=== PATIENT | female | born 1950 | race Caucasian/White ===

== ENCOUNTER 2017-01-16 00:49 | Emergency (ER) | payer MEDICARE, OTHER ==
[2017-01-16 01:32] LABS: INR 0.96 INR (0.90-1.10); Partial Thrombolplastin Time 23.1 Seconds (24-32)
[2017-01-16 01:33] LABS: ALT 14 U/L (19-67); AST 13 U/L (0-48); Albumin * 3.2 gm/dl (3.4-5.0); Alkaline Phosphatase * 102 U/L (50-170); Anion Gap 8.3 mmol/L (6.8-13.8); BUN/Creatinine Ratio 22.2 (9.0-21.6); Bilirubin, Total 0.3 mg/dL (0.0-1.1); Blood Urea Nitrogen 22 mg/dL (3-23); Ca. Corrected For Albumin 9.2 mg/dL (8.4-10.2); Calcium * 8.9 mg/dL (7.9-10.9); Carbon Dioxide 35.5 mmol/L (24-32.6); Chloride 105 mmol/L (97-106); Glucose * 214 mg/dL (70-110); Potassium 3.8 mmol/L (3.4-4.6); Sodium 145 mmol/L (132-142); Total Protein 7.1 gm/dL (6.2-8.2); Troponin I Less than 0.017 ng/ml (0.00-0.10)
[2017-01-16 01:41] LABS: White Blood Count 6.9 K/mm3 (4.0-10.5)
[2017-01-16 01:42] LABS: Hematocrit 40.8 % (37.0-47.0); Hemoglobin 12.3 gm/dL (12.5-16.0); Mean Cell Volume 95.3 fl (78-100); Mean Corpuscular Hemoglobin 28.7 pg (27-31); Mean Corpuscular Hgb Conc 30.1 g/dl (32-36); Mean Platelet Volume 9.5 fl (6.0-9.5); Platelet Count 247 K/mm3 (150-450); Red Blood Count 4.28 M/mm3 (4.2-5.4); Red Cell Distribution Width 14.3 % (11.5-14.0)
[2017-01-16 01:43] LABS: Total Cells Counted 100
--- NOTE | 2017-01-16 01:50 | ERNOTE ---
Chest Pain/Cardiac HPI Chief Complaint: Chest Pain Time Seen by Provider: 01/16/17 01:34 Source: patient Exam Limitations: no limitations Immunizations: IMMUNIZATION HX Immunizations Up to Date Yes History of Influenza Vaccine Yes Allergies/Adverse Reactions: Allergies adhesive Allergy (Verified 01/16/17 01:09) mold Allergy (Verified 01/16/17 01:09) Penicillins Allergy (Verified 01/16/17 01:09) Home Medications: HOME MEDICATIONS Albuterol Sulfate [Proair Hfa] 1 - 2 puff IH Q4H PRN 01/16/17 [Last Taken Unknown] Atorvastatin Calcium 10 mg PO DAILY 01/16/17 [Last Taken Unknown] Furosemide [Lasix] 20 mg PO DAILY 01/16/17 [Last Taken Unknown] Tiotropium [place] [Spiriva] 18 mcg IH DAILY 01/16/17 [Last Taken Unknown] glipiZIDE [Glipizide] 5 mg PO BID 01/16/17 [Last Taken Unknown] Narrative: pt had some fluttering feeling in her chest yesterday, that resolved spontaneously. She had some return of symptoms this morning temporarily. This evening she had increase of chest pain and shortness of breath and presented to the ED Timing: getting worse Severity/Quality: moderate - 10 Location: substernal, epigastric Chest Pain Radiation: no radiation Nitro Today/Relief: no nitro taken today Aspirin Treatment Today: no aspirin today Associated Symptoms: Present: shortness of breath Prior Chest Pain/Cardiac Workup: Reports: prior chest pain, echocardiogram - Stress echo about a year ago Review of Systems - Review of Systems Constitutional: Absent: recent illness EYE: Present: no symptoms reported ENT: Present: no symptoms reported Respiratory: Present: See HPI, shortness of breath, other - increased pain with deep breaths Cardiology: Present: See HPI, chest pain Gastrointestinal/Abdominal: Present: no symptoms reported Genitourinary: Present: no symptoms reported Musculoskeletal: Present: no symptoms reported Skin: Present: no symptoms reported Neurological: Present: no symptoms reported Endocrine: Present: no symptoms reported Hematologic/Lymphatic: Present: no symptoms reported Psych: Present: no symptoms reported - Patient's Past Medical History Patient History - Medical: Diabetes Type 2 Patient History - Cardiac/Respiratory: COPD Patient History - Cancer: Breast Patient History - Surgical Procedures: Cancer Surgery, Tubal Ligation, Other Patient History - Other: None - Social History Living Situations: home Psych History: No pertinent hx Smoking Status: Current every day smoker Do you dip or chew tobacco: No Alcohol Use: rarely Drug Use: none - Immunizations Immunizations Up to Date: Yes History of Influenza Vaccine: Yes Physical Exam - Physical Exam General Appearance: Present: wd/wn, alert, no apparent distress Eye Exam: Normal inspection: bilateral Neck: Present: normal inspection, nontender, supple Respiratory: Present: no respiratory distress, normal breath sounds, lungs clear Cardiovascular/Chest: Present: regular rate, rhythm, no murmur, chest tenderness - mid to lower sternal Gastrointestinal/Abdominal: Present: normal bowel sounds, nontender, nondistended Extremity Exam: Present: extremity edema - 2+ with compression stockings in place bilateral. Oozing noted on both compression stockings and 1-2 + edema Neurological Exam: Present: alert, oriented, normal mood/affect Skin Exam: Present: normal color, warm/dry ED Progress - Results and Orders Patient's Lab Results:: I have reviewed the patient's lab results. Results and Orders: Laboratory Tests 01/16/17 01/16/17 01/16/17 01:10 01:10 01:10 WBC 6.9 Hgb 12.3 L Hct 40.8 Plt Count 247 PT 10.0 INR (Anticoag Therapy) 0.96 PTT ([place]) 23.1 L Sodium 145 H Potassium 3.8 Chloride 105 Carbon Dioxide 35.5 H Anion Gap 8.3 BUN 22 Creatinine 0.99 Est GFR (Non-Af Amer) 59 L BUN/Creatinine Ratio 22.2 H Random Glucose 214 H Calcium 8.9 Total Bilirubin 0.3 AST 13 ALT 14 L Alkaline Phosphatase 102 Troponin I Less than 0.017 Total Protein 7.1 Albumin 3.2 L Laboratory Tests 01/16/17 03:15 Troponin I Less than 0.017 - Vital Signs Patient's Vital Signs:: I have reviewed the patient's vital signs. Vital Signs: Vital Signs 01/16/17 01/16/17 01:00 01:29 Temperature 36.9 C Pulse Rate 78 78 Respiratory 18 16 Rate Blood Pressure 124/47 139/54 O2 Sat by Pulse 95 97 Oximetry - EKG EKG: NSR EKG read: Interp. by wv - X-Ray X-Ray #1 X-Ray: chest Interpretation: Interp. by me X-ray Comments: Linear scarring bilateral bases, no infiltrate, effusion or pneumothorax. Surgical clips noted in the left chest / axilla possibly related to left mastectomy. - Progress/Reassessment Chief Complaint: Chest Pain Progress:: Improved Progress Note-Subjective: 01/16/17 02:46 Pt much improved. Will get second Ti at 03:10. Departure - Departure Clinical Impression: Costochondral chest pain Disposition: Home Follow Up Needed Condition: Good Instructions: Costochondritis, [id number] Additional Instructions: See your regular doctor for further evaluation. Ice to your chest off and on may help with tenderness. You may try tums or other heartburn medications as needed.
[2017-01-16 01:58] LABS: Band 1 % (0-2.0); Eosinophil 11 % (0-3); Lymphocyte 32 % (20-51); Monocyte 8 % (0-9); Neutrophil 48 % (42-75); Neutrophil # 3.3 K/mm3 (1.3-6.0)
[2017-01-16 01:59] LABS: Hypochromia 1+; Platelet Estimate Normal (NORMAL)
[2017-01-16 02:01] LABS: Microcytosis 1+
--- OUTSIDE RECORDS SUMMARY | 2017-01-16 03:35 | XMS REPORT | Continuity of Care Document ---
:1950 Demographics Phone Unavailable Preferred Language Unknown Marital Status Unknown Caodaism Affiliation Unknown Race Unknown Ethnic Group Unknown Author Organization [facility] ([facility]) [place] [address] Phone [phone] Care Team Providers Name Role Phone Unavailable Primary Care Provider Unavailable Source Comments This disclosure is being made pursuant to the Care Everywhere program, applicable federal and state laws, and may not contain all informaitonavailable regarding this patient.[facility] ([facility]) Active Allergies and Adverse Reactions Not on File Current Medications Not on file Active Problems Not on file Social History Tobacco Use Types Packs/Day Years Used Date Never Assessed Plan of Care Health Maintenance Due Date Last Done Comments HCV Screening 1950 Hepatitis B Vaccine (1 of 3 - Primary Series) 1950 Tdap Vaccine 1959 Lipid Disorder Screening 1966 Td Vaccine 1966 Mammogram 1988 Colonoscopy 1998 Zoster Vaccine 2008 Osteoporosis Screening (DXA Bone Density) 2013 Pneumococcal Vaccine (1 of 2 - PCV13) 2013 Influenza Vaccine: Seasonal (#1) 03/27/2016 Results from Last 3 Months Not on file
[2017-01-16 04:17] VITALS: BP 110/40
== END 2017-01-16 04:15 | disposition home or self-care (01) ==
LOC: ER 00:49
DX: R07.1 Chest pain on breathing (principal); E11.9 Type 2 diabetes mellitus without complications; Z85.3 Personal history of malignant neoplasm of breast; F17.200 Nicotine dependence, unspecified, uncomplicated; J44.9 Chronic obstructive pulmonary disease, unspecified

== ENCOUNTER 2017-02-27 20:24 | Emergency (ER) | payer MEDICARE, OTHER ==
--- NOTE | 2017-02-27 21:01 | ERNOTE ---
Dyspnea - General Presenting Symptoms: shortness of breath Time Seen by Provider: 02/27/17 20:48 Source: patient, family Exam Limitations: no limitations - Immun/Allergies/Home Medications Immunizations: IMMUNIZATION HX Immunizations Up to Date Yes History of Influenza Vaccine Yes Hx Pneumococcal Vaccination Yes Allergies/Adverse Reactions: Allergies adhesive Allergy (Verified 02/27/17 20:32) mold Allergy (Verified 02/27/17 20:32) Penicillins Allergy (Verified 02/27/17 20:32) Home Medications: HOME MEDICATIONS Albuterol Sulfate [Proair Hfa] 1 - 2 puff IH Q4H PRN 01/16/17 [Last Taken Unknown] Atorvastatin Calcium 10 mg PO DAILY 01/16/17 [Last Taken Unknown] Furosemide [Lasix] 20 mg PO DAILY 01/16/17 [Last Taken Unknown] Tiotropium [place] [Spiriva] 18 mcg IH DAILY 01/16/17 [Last Taken Unknown] glipiZIDE [Glipizide] 5 mg PO BID 01/16/17 [Last Taken Unknown] Sulfamethoxazole/Trimethoprim [Bactrim Ds] 1 tab PO BID #7 tab 02/27/17 [Last Taken Unknown] - History of Present Illness Narrative: Pt states she has been short of breath for 24 hours. mostly noticed with activity Severity: moderate Initiating event: Reports: none Frequency of episodes: Reports: occassional episodes Modifying Factors - (Improves): Reports: oxygen Modifying Factors (Worsens): Reports: activity Associated Symptoms-Dyspnea: Reports: fever/chills Prior Treatment: Reports: recently seen - Saw her physician in follow up from recent hospitalization less than a week ago, recently hospitalized - In [facility] for bronchitis Review of Systems - Review of Systems Constitutional: Present: recent illness, chills, fatigue EYE: Present: no symptoms reported ENT: Present: no symptoms reported Respiratory: Present: See HPI. Absent: cough Cardiology: Present: edema - consistantly. Absent: chest pain, palpitations Gastrointestinal/Abdominal: Absent: nausea, vomiting Genitourinary: Present: no symptoms reported Musculoskeletal: Present: no symptoms reported Skin: Present: no symptoms reported Neurological: Present: no symptoms reported Endocrine: Present: no symptoms reported Hematologic/Lymphatic: Present: no symptoms reported Psych: Present: no symptoms reported - Patient's Past Medical History Patient History - Medical: Diabetes Type 2 Patient History - Cardiac/Respiratory: COPD Patient History - Cancer: Breast Patient History - Surgical Procedures: Cancer Surgery, Tubal Ligation, Other Patient History - Other: None LMP (females 10-50): Menopausal - Social History Living Situations: home Psych History: No pertinent hx Smoking Status: Current every day smoker Alcohol Use: rarely Drug Use: none - Immunizations Immunizations Up to Date: Yes Hx Pneumococcal Vaccination: Yes History of Influenza Vaccine: Yes Physical Exam - Physical Exam General Appearance: Present: wd/wn, alert, mild distress Eye Exam: Normal inspection: bilateral, PERRL: bilateral Ears, Nose, Throat: Present: normal ENT inspection Neck: Present: normal inspection, supple Respiratory: Present: no respiratory distress, no accessory muscle use, lungs clear Cardiovascular/Chest: Present: regular rate, rhythm, no murmur Back Exam: Present: normal inspection, normal range of motion Extremity Exam: Present: extremity edema - taught, thick skin, 4+ edema Neurological Exam: Present: alert, oriented, normal mood/affect Skin Exam: Present: other - erythema and thickening of skin of LE bilateral ED Progress - Results and Orders Patient's Lab Results:: I have reviewed the patient's lab results. Results and Orders: Laboratory Tests 02/27/17 02/27/17 02/27/17 21:25 21:25 21:57 WBC 8.0 Hgb 13.4 Hct 47.8 H Plt Count 196 Sodium 147 H Potassium 5.1 H D Chloride 107 H Carbon Dioxide 40.1 H Anion Gap 5.0 L BUN 16 Creatinine 1.09 Est GFR (Non-Af Amer) 53 L BUN/Creatinine Ratio 14.7 Random Glucose 389 H Calcium 9.2 Calcium Adj for Albumin 9.6 Total Bilirubin 0.3 AST 14 ALT 28 Alkaline Phosphatase 108 Troponin I Less than 0.017 B-Natriuretic Peptide 1821 H Total Protein 7.3 Albumin 3.1 L Urine Color Yellow Urine Appearance Clear Urine pH 5.5 Ur Specific [place] 1.020 Urine Protein 15 H Urine Glucose (UA) 500 H Urine Ketones Negative Urine Blood 25 H Urine Nitrate Positive H Urine Bilirubin Negative Prot Sulfosalicylic Acd Negative Urine Urobilinogen Normal Ur Leukocyte Esterase Negative Urine RBC 0-5 Urine WBC 5-10 H Ur Epithelial Cells 10-25 H Urine Bacteria 4+ H Hyaline Casts 5-10 H Urine Culture Comments Culture to follow - Vital Signs Patient's Vital Signs:: I have reviewed the patient's vital signs. Vital Signs: Vital Signs 02/27/17 02/27/17 20:24 20:39 Temperature 36.6 C Pulse Rate 87 78 Respiratory 26 H Rate Blood Pressure 160/78 O2 Sat by Pulse 93 Oximetry - EKG EKG: NSR EKG read: Interp. by me - Progress/Reassessment Chief Complaint: Dyspnea Departure Clinical Impression: UTI (urinary tract infection) Qualifiers: Urinary tract infection type: acute cystitis Hematuria presence: with hematuria Qualified Code(s): N30.01 - Acute cystitis with hematuria - Departure Disposition: Home self-care Condition: Good Instructions: Urinary Tract Infection, Adult, [id number] Additional Instructions: Drink plenty of water. take it easy for a few days. Follow up with your regular doctor if not improving Prescriptions: Sulfamethoxazole/Trimethoprim [Bactrim Ds] 1 tab PO BID #7 tab
[2017-02-27 21:31] LABS: Hematocrit 47.8 % (37.0-47.0); Hemoglobin 13.4 gm/dL (12.5-16.0); Mean Cell Volume 96.4 fl (78-100); Mean Platelet Volume 10.8 fl (6.0-9.5); Neutrophil # 4.2 K/mm3 (1.3-6.0); Neutrophil % 53.4 % (42-75.0); Platelet Count 196 K/mm3 (150-450); Red Blood Count 4.96 M/mm3 (4.2-5.4); Red Cell Distribution Width 15.6 % (11.5-14.0)
[2017-02-27 21:52] LABS: ALT 28 U/L (19-67); AST 14 U/L (0-48); Albumin * 3.1 gm/dl (3.4-5.0); Alkaline Phosphatase * 108 U/L (50-170); BNP * 1821 pg/mL (5-325); Bilirubin, Total 0.3 mg/dL (0.0-1.1); Ca. Corrected For Albumin 9.6 mg/dL (8.4-10.2); Calcium * 9.2 mg/dL (7.9-10.9); Carbon Dioxide 40.1 mmol/L (24-32.6); Chloride 107 mmol/L (97-106); Glucose * 389 mg/dL (70-110); Potassium 5.1 mmol/L (3.4-4.6); Sodium 147 mmol/L (132-142); Total Protein 7.3 gm/dL (6.2-8.2); Troponin I Less than 0.017 ng/ml (0.00-0.10)
[2017-02-27 22:04] LABS: Urine Appearance Clear; Urine Bacteria 4+; Urine Bilirubin Negative (NEGATIVE); Urine Blood 25 /ul (NEGATIVE); Urine Color Yellow; Urine Ketone Negative (NEGATIVE); Urine Nitrite Positive (NEGATIVE); Urine Protein 15 mg/dL (NEGATIVE); Urine RBC 0-5 /hpf (0-5); Urine Urobilinogen Normal (NORMAL); Urine pH 5.5 pH (5.0-7.0)
[2017-02-27 22:07] LABS: BUN/Creatinine Ratio 15.6 (9.0-21.6); Blood Urea Nitrogen 17 mg/dL (3-23)
[2017-02-27] MEDS ORDERED: SULFAMETHOXAZOLE/TRIMETHOPRIM 1 TAB TABLET PO ONE (23:18)
[2017-02-27] MEDS ORDERED: SULFAMETHOXAZOLE/TRIMETHOPRIM 1 TAB TABLET ONE (23:20)
[2017-02-27 23:23] VITALS: BP 123/6
== END 2017-02-27 23:35 | disposition home or self-care (01) ==
LOC: ER 20:24
DX: N30.01 Acute cystitis with hematuria (principal); F17.200 Nicotine dependence, unspecified, uncomplicated; R06.02 Shortness of breath

== ENCOUNTER 2017-03-03 17:34 | Emergency (ER) | payer MEDICARE ==
[2017-03-03] MEDS ORDERED: INSULIN REGULAR, HUMAN 100 UNITS/ML VIAL IV ONE (17:59)
[2017-03-03] MEDS ORDERED: NORMAL SALINE 1,000 ML IV ONE (17:59)
[2017-03-03] MEDS ORDERED: INSULIN REGULAR, HUMAN 100 UNITS/ML VIAL ONE (18:09)
[2017-03-03 18:27] LABS: Hematocrit 46.9 % (37.0-47.0); Hemoglobin 13.4 gm/dL (12.5-16.0); Mean Cell Volume 95.3 fl (78-100); Mean Corpuscular Hemoglobin 27.2 pg (27-31); Mean Corpuscular Hgb Conc 28.6 g/dl (32-36); Platelet Count 200 K/mm3 (150-450); Red Blood Count 4.92 M/mm3 (4.2-5.4); Red Cell Distribution Width 15.5 % (11.5-14.0); White Blood Count 8.3 K/mm3 (4.0-10.5)
--- NOTE | 2017-03-03 18:31 | ERNOTE ---
Medical Problem HPI - General Chief Complaint: Diabetes Related Problem Time Seen by Provider: 03/03/17 17:51 Source: patient Exam Limitations: no limitations - Immun/Allergies/Home Medications Immunizations: IMMUNIZATION HX Immunizations Up to Date Yes History of Influenza Vaccine Yes Hx Pneumococcal Vaccination Yes Allergies/Adverse Reactions: Allergies adhesive Allergy (Verified 03/03/17 17:41) mold Allergy (Verified 03/03/17 17:41) Penicillins Allergy (Verified 03/03/17 17:41) Home Medications: HOME MEDICATIONS Albuterol Sulfate [Proair Hfa] 1 - 2 puff IH Q4H PRN 01/16/17 [Last Taken Unknown] Atorvastatin Calcium 10 mg PO DAILY 01/16/17 [Last Taken Unknown] Furosemide [Lasix] 20 mg PO DAILY 01/16/17 [Last Taken Unknown] Tiotropium [place] [Spiriva] 18 mcg IH DAILY 01/16/17 [Last Taken Unknown] glipiZIDE [Glipizide] 5 mg PO BID 01/16/17 [Last Taken Unknown] Sulfamethoxazole/Trimethoprim [Bactrim Ds] 1 tab PO BID #7 tab 02/27/17 [Last Taken Unknown] metFORMIN HCL [Glucophage Xr] 500 mg PO DAILY #30 tab 03/03/17 [Last Taken Unknown] traMADol HCL [Ultram] 50 mg PO QID PRN #10 tablet 03/03/17 [Last Taken Unknown] - History of Present History Narrative: Patient has been noticing that her blood sugar has been slowly creeping up since that which she believes to be the glipizide is been removed. Patient states that at home her blood sugar was 450 she has noticed that there is been an increase in both urination and thirst. The patient became worried and called the ambulance to be evaluated. Her only real complaint is that she is thirsty. Timing: constant Severity: mild Review of Systems - Review of Systems Constitutional: Present: See HPI EYE: Present: no symptoms reported ENT: Present: no symptoms reported Respiratory: Present: no symptoms reported Cardiology: Present: no symptoms reported Gastrointestinal/Abdominal: Present: no symptoms reported Genitourinary: Present: frequency Musculoskeletal: Present: no symptoms reported Skin: Present: no symptoms reported Neurological: Present: no symptoms reported Endocrine: Present: no symptoms reported Hematologic/Lymphatic: Present: no symptoms reported Psych: Present: no symptoms reported - Patient's Past Medical History Patient History - Medical: Diabetes Type 2 Patient History - Cardiac/Respiratory: COPD Patient History - Cancer: Breast Patient History - Surgical Procedures: Cancer Surgery, Tubal Ligation, Other Patient History - Other: None - Social History Living Situations: home Psych History: No pertinent hx Smoking Status: Current every day smoker Alcohol Use: rarely Drug Use: none - Immunizations Immunizations Up to Date: Yes Hx Pneumococcal Vaccination: Yes History of Influenza Vaccine: Yes Physical Exam - Physical Exam General Appearance: Present: wd/wn, alert, mild distress Eye Exam: Normal inspection: bilateral, PERRL: bilateral Ears, Nose, Throat: Present: normal pharynx, dry mucous membranes Neck: Present: normal inspection, nontender Respiratory: Present: no respiratory distress, normal breath sounds, no accessory muscle use, chest nontender, lungs clear Cardiovascular/Chest: Present: regular rate, rhythm, no murmur, normal peripheral pulses Gastrointestinal/Abdominal: Present: normal bowel sounds, nontender, nondistended, soft, no organomegaly Rectal Exam: Present: deferred Back Exam: Present: normal inspection, normal range of motion Extremity Exam: Present: normal inspection, non-tender, no edema, normal range of motion Neurological Exam: Present: alert, oriented, normal mood/affect Skin Exam: Present: normal color, warm/dry Lymphatic Exam: Present: no adenopathy ED Progress - Results and Orders Patient's Lab Results:: I have reviewed the patient's lab results. - Vital Signs Patient's Vital Signs:: I have reviewed the patient's vital signs. Vital Signs: Vital Signs 03/03/17 03/03/17 17:35 17:45 Temperature 36.9 C Pulse Rate 96 96 Respiratory 18 Rate Blood Pressure 145/80 - Progress/Reassessment Chief Complaint: Diabetes Related Problem Progress:: Improved Departure - Departure Clinical Impression: Hyperglycemia, Dehydration Instructions: Hyperglycemia, [id number], Dehydration, Elderly Referrals: [facility]TON [Non Staff Physicians] - Prescriptions: metFORMIN HCL [Glucophage Xr] 500 mg PO DAILY #30 tab traMADol HCL [Ultram] 50 mg PO QID PRN #10 tablet PRN Reason: Moderate Pain
[2017-03-03 18:41] LABS: ALT 18 U/L (19-67); AST 17 U/L (0-48); Alkaline Phosphatase * 114 U/L (50-170); Anion Gap 7.5 mmol/L (6.8-13.8); BUN/Creatinine Ratio 19.8 (9.0-21.6); Bilirubin, Total 0.2 mg/dL (0.0-1.1); Blood Urea Nitrogen 23 mg/dL (3-23); Ca. Corrected For Albumin 9.5 mg/dL (8.4-10.2); Carbon Dioxide 38.8 mmol/L (24-32.6); Chloride 105 mmol/L (97-106); Glucose * 396 mg/dL (70-110); Magnesium 2.1 mg/dL (1.2-2.8); Potassium 5.3 mmol/L (3.4-4.6); Sodium 146 mmol/L (132-142); Total Protein 7.2 gm/dL (6.2-8.2)
[2017-03-03 18:47] LABS: Total Cells Counted 100
[2017-03-03 19:01] LABS: Urine Appearance Clear; Urine Bilirubin Negative (NEGATIVE); Urine Blood 25 /ul (NEGATIVE); Urine Color Yellow; Urine Ketone Negative (NEGATIVE); Urine Nitrite Negative (NEGATIVE); Urine Protein Negative (NEGATIVE); Urine Specific Gravity 1.015 SP.GR. (1.005-1.010); Urine Urobilinogen Normal (NORMAL); Urine pH 5.5 pH (5.0-7.0)
[2017-03-03 19:02] LABS: Urine Bacteria TRACE; Urine RBC 0-5 /hpf (0-5); Urine WBC 0-5 /hpf (0-5)
[2017-03-03 19:14] LABS: Eosinophil 27 % (0-3); Lymphocyte 12 % (20-51); Monocyte 9 % (0-9); Neutrophil 52 % (42-75); Neutrophil # 4.3 K/mm3 (1.3-6.0); Platelet Estimate Normal (NORMAL); RBC Morphology Normal (NORMAL)
[2017-03-03] MEDS ORDERED: INSULIN REGULAR, HUMAN 100 UNITS/ML VIAL SC ONE (19:40)
[2017-03-03 20:27] VITALS: BP 132/81
== END 2017-03-03 20:12 | disposition home or self-care (01) ==
LOC: ER 17:34
DX: E86.0 Dehydration (principal); E11.65 Type 2 diabetes mellitus with hyperglycemia; F17.200 Nicotine dependence, unspecified, uncomplicated

== ENCOUNTER 2017-05-19 03:30 | Emergency (ER) | payer MEDICARE ==
[2017-05-19 03:34] VITALS: BP 132/81
--- NOTE | 2017-05-19 03:52 | ERNOTE ---
Medical Problem HPI - Narrative Date of Service: 05/19/17 - General Time Seen by Provider: 05/19/17 03:31 Source: EMS Exam Limitations: clinical condition - Immun/Allergies/Home Medications Immunizations: IMMUNIZATION HX Immunizations Up to Date Yes History of Influenza Vaccine Yes Hx Pneumococcal Vaccination Yes Allergies/Adverse Reactions: Allergies adhesive Allergy (Verified 03/03/17 17:41) mold Allergy (Verified 03/03/17 17:41) Penicillins Allergy (Verified 03/03/17 17:41) Home Medications: HOME MEDICATIONS Albuterol Sulfate [Proair Hfa] 1 - 2 puff IH Q4H PRN 01/16/17 [Last Taken Unknown] Atorvastatin Calcium 10 mg PO DAILY 01/16/17 [Last Taken Unknown] Furosemide [Lasix] 20 mg PO DAILY 01/16/17 [Last Taken Unknown] Tiotropium [place] [Spiriva] 18 mcg IH DAILY 01/16/17 [Last Taken Unknown] glipiZIDE [Glipizide] 5 mg PO BID 01/16/17 [Last Taken Unknown] Sulfamethoxazole/Trimethoprim [Bactrim Ds] 1 tab PO BID #7 tab 02/27/17 [Last Taken Unknown] metFORMIN HCL [Glucophage Xr] 500 mg PO DAILY #30 tab 03/03/17 [Last Taken Unknown] traMADol HCL [Ultram] 50 mg PO QID PRN #10 tablet 03/03/17 [Last Taken Unknown] - History of Present History Narrative: The patient arrived with CPR in progress. AT 0250h the patient suddenly slumped over and became cyanotic which was witnessed by the family. There were complaints of mild chest pain earlier in the day. There was no previous history of cardiac disease. PMH: significant for diabetes and breast cancer. The patient had wished to be a DNR but family decided to make her a full code when the IPOST could not be found. The patient arrived at 0330h, with no IV access having been established by EMS, but did have a Teodoro Airway present. No drugs had been administered by EMS due to the lack of IV access. In the ED a IO was established at the left distal tibia and one round of epinephrine was given. No viable rhythm was established. Pupils were fixed and unresponsive. The skin demonstrated mottling. Time (Timing): 03:30 Timing: constant Modifying Factors - (Improves): Present: other - none Modifying Factors - (Worsens): Present: other - none Review of Systems - Narrative Narrative: None obtained due to condition of the patient. - Patient's Past Medical History Patient History - Medical: Diabetes Type 2 Patient History - Cardiac/Respiratory: COPD Patient History - Cancer: Breast Patient History - Surgical Procedures: Cancer Surgery, Tubal Ligation, Other Patient History - Other: None - Social History Living Situations: home Psych History: No pertinent hx Alcohol Use: rarely Drug Use: none - Immunizations Immunizations Up to Date: Yes Hx Pneumococcal Vaccination: Yes History of Influenza Vaccine: Yes Physical Exam - Physical Exam Narrative: unresponsive General Appearance: Present: obese Head Exam: Present: other - no evidence of trauma Eye Exam: Other: bilateral - fixed and non responsive Ears, Nose, Throat: Present: normal ENT inspection Neck: Present: normal inspection Respiratory: Present: other - no spontaneous breathing; Teodoro Airway in place Cardiovascular/Chest: Present: other - initially asystole Gastrointestinal/Abdominal: Present: nontender Extremity Exam: Present: extremity edema Neurological Exam: Present: other - unresponsive Skin Exam: Present: warm/dry, other - mottling present at the abdomen and hands ED Progress - Vital Signs Patient's Vital Signs:: I have reviewed the patient's vital signs. Departure Clinical Impression: Cardiac arrest - Departure Disposition: [facility] Condition:
== END 2017-05-19 06:45 | disposition expired ==
LOC: ER 03:30
PROC: 5A12012 Performance of Cardiac Output, Single, Manual (ICD-10-PCS; principal; 2017-05-19)
DX: I46.9 Cardiac arrest, cause unspecified (principal); Z85.3 Personal history of malignant neoplasm of breast